=== PATIENT | female | born 1980 | race Caucasian/White ===

== ENCOUNTER 2016-07-16 09:22 | Emergency (ER) | payer SELFPAY ==
[2016-07-16] MEDS ORDERED: Morphine INJ* 4 MG/ML 1 ML CARPUJECT IM ONE (13:03)
[2016-07-16] MEDS ORDERED: Ondansetron INJ* 2 MG/ML VIAL IV ONE (13:03)
[2016-07-16] MEDS ORDERED: NS 0.9% 1000 ML* 1,000 ML IV ONE (13:03)
[2016-07-16 14:39] LABS: Urine Bacteria Absent (Absent); Urine Bilirubin Negative (Negative); Urine Glucose Negative (Negative); Urine Nitrite Negative (Negative)
[2016-07-16 14:52] LABS: Hematocrit 41 % (35-47); Hemoglobin 13.3 g/dl (12.0-16.0); Mean Corpuscular HGB Conc 33 g/dl (31-36); Mean Corpuscular Hemoglobin 27 pg (27-31); Mean Corpuscular Volume 82 fL (80-97); Mean Platelet Volume 9 um3 (7.4-10.4); Red Blood Count 4.94 10^6/ul (4.0-5.4); Red Cell Distribution Width 14 % (10.5-15); White Blood Count 11.9 10^3/ul (3.5-10.8)
--- NOTE | 2016-07-16 15:04 | RAD ---
HISTORY: Right pelvic pain COMPARISONS: October 14, 2015 TECHNIQUE: Multiple transverse and longitudinal ultrasound images were obtained of the pelvis using grayscale, color Doppler, and spectral Doppler imaging using the endovaginal transducer. FINDINGS: Evaluation of the right ovary somewhat technically limited. UTERUS: The uterus measures 7.9 x 4 x 4.8 cm. The uterus is normal in shape, size, contour, and echotexture. ENDOMETRIUM: The endometrial stripe is smooth. The endometrium measures 0.3 cm in thickness. CUL-DE-SAC: There is no free fluid within the cul-de-sac. RIGHT OVARY: The right ovary measures 3.8 x 2.3 x 2 cm. Normal arterial and venous waveforms are identifiable within the ovary on spectral Doppler imaging. LEFT OVARY: The left ovary measures 3.6 x 1.8 x 2.3 cm. Normal arterial and venous waveforms are identifiable within the ovary on spectral Doppler imaging. BLADDER: The bladder is not well visualized. IMPRESSION: NO ACUTE SONOGRAPHIC PATHOLOGY OF THE VISUALIZED PORTION OF THE PELVIS.
[2016-07-16 15:08] LABS: ALT 14 U/L (7-52); Albumin 4.1 g/dL (3.2-5.2); Alkaline Phosphatase 54 U/L (34-104); BUN/Creatinine Ratio 24.2 (8-20); Blood Urea Nitrogen 15 mg/dL (6-24); C Reactive Protein 11.78 mg/L (< 5.00); CO2 Carbon Dioxide 21 mmol/L (22-32); Calcium 8.9 mg/dL (8.6-10.3); Chloride 108 mmol/L (101-111); EGFR African American 141.7 (>60); EGFR Non-African American 110.2 (>60); Globulin 3.2 g/dL (2-4); Glucose 86 mg/dL (70-100); Lipase 22 U/L (11.0-82.0); Sodium 134 mmol/L (133-145); Total Protein 7.3 g/dL (6.4-8.9)
[2016-07-16 15:37] LABS: AST 13 U/L (13-39); Anion Gap 5 mmol/L (2-11); Potassium 4.2 mmol/L (3.5-5.0)
[2016-07-16] MEDS ORDERED: Iohexol 300* (CONTRAST) 10 ML SDV IV ONE (16:12)
[2016-07-16] MEDS ORDERED: Morphine INJ* 4 MG/ML 1 ML CARPUJECT IV ONE (17:43)
--- NOTE | 2016-07-16 18:50 | RAD ---
CLINICAL HISTORY: Abdominal pain, right lower quadrant pain COMPARISON: July 27, 2009 TECHNIQUE: Multiple contiguous axial CT scans were obtained of the abdomen and pelvis, without intravenous contrast enhancement. Coronal and sagittal multiplanar reformations are submitted for review. Oral contrast was administered. FINDINGS: The study is limited by the lack of intravenous contrast. This limits evaluation of the solid organs and vasculature. LUNG BASES: The lung bases are clear. LIVER: The liver is normal in shape, size, contour, and attenuation. BILE DUCTS: There is no intrahepatic or extrahepatic biliary dilatation. GALLBLADDER: The gallbladder is normal, without pericholecystic inflammatory change. PANCREAS: The pancreas is normal, without mass or ductal dilatation. SPLEEN: Normal in size and appearance. UPPER GI TRACT: Evaluation of the gastrointestinal tract is limited by incomplete gastric distention. The upper GI tract is unremarkable. SMALL BOWEL AND MESENTERY: The small bowel is normal in contour, course, and caliber. There is no obstruction or dilatation. COLON: There is a tubular, vermiform, hollow viscus that is blind ending, and originates from the cecum, consistent with a normal appendix. There is no periappendiceal inflammatory change. This is best seen on images 113 through 117 ADRENALS: Normal bilaterally. KIDNEYS: The kidneys are normal in shape, size, contour, and axis. There is no hydronephrosis or nephrolithiasis. BLADDER: The bladder is smooth in contour. PELVIC ORGANS: The uterus and adnexa are grossly normal for technique. AORTA: The aorta is normal. IVC: Unremarkable LYMPH NODES: There is no lymphadenopathy by size criteria. ABDOMINAL WALL: There is no evidence for abdominal wall hernia. BONES AND SOFT TISSUES: Unremarkable OTHER: None IMPRESSION: NO ACUTE CT PATHOLOGY OF THE VISUALIZED ABDOMEN OR PELVIS
--- NOTE | 2016-07-16 19:21 | ED ---
Fabrice Loza Anna, scribed for Chato Huston MD on 07/16/16 at 1302 . Abdominal Pain/Female - HPI Summary HPI Summary: Patient is a 35 y/o female coming to [facility] presenting with gradual onset of constant right pelvic pain that began yesterday. She describes the severity of the pain as 9/10. The pain radiates to her right lower abd, back, and bilateral legs. She has had bilateral thigh pain for 1.5 months. She had an ectopic last year and no longer has her right fallopian tube. LNMP now. - History of Current Complaint Chief Complaint: EDAbdPain Stated Complaint: RT SIDE PELVIC PAIN Time Seen by Provider: 07/16/16 12:53 Hx Obtained From: Patient Hx Last Menstrual Period: now Onset/Duration: Still Present Timing: Constant Severity Initially: Moderate Severity Currently: Moderate Pain Intensity: 9 Pain Scale Used: 0-10 Numeric Allergies/Adverse Reactions: Allergies Allergy/AdvReac Type Severity Reaction Status Date / Time Amoxicillin Allergy Severe turned Verified 07/16/16 09:51 blue and stopped breathing oranges Allergy Anaphylatic Uncoded 12/17/15 17:58 Shock PMH/Surg Hx/FS Hx/Imm Hx Neurological History: Reports: Hx Seizures - Surgical History Surgery Procedure, Year, and Place: hernia repair. tonsils and adenoids as a child. Ectopic 2016, removal of r fallopian tube Infectious Disease History: No Infectious Disease History: Denies: Hx Clostridium Difficile, Hx Hepatitis, Hx Human Immunodeficiency Virus (HIV), Hx of Known/Suspected MRSA, Hx Shingles, Hx Tuberculosis, Hx Known/ Suspected VRE, Hx Known/Suspected VRSA, History Other Infectious Disease, Traveled Outside the [place] in Last 30 Days - Family History Known Family History: Positive: Other - Hx Ovarian, cervical, uterine CA Negative: Cardiac Disease, Diabetes - Social History Occupation: Employed Full-time Lives: With Family Alcohol Use: None Hx Substance Use: No Substance Use Type: Reports: None Hx Tobacco Use: No Smoking Status (MU): Former Smoker Review of Systems Positive: Abdominal Pain Positive: Myalgia - R pelvis and bilateral legs All Other Systems Reviewed And Are Negative: Yes Physical Exam - Summary Physical Exam Summary: VITAL SIGNS: Reviewed. GENERAL: Patient is an overweihgt female who is lying comfortable in the stretcher. Patient is not in any acute respiratory distress. HEAD AND FACE: Normocephalic and atraumatic. EYES: PERRLA, EOMI x 2, No injected conjunctiva. EARS: Hearing grossly intact. Ear canals and tympanic membranes are WNL. MOUTH: Oropharynx within normal limits. NECK: Supple, trachea is midline, no adenopathy, no JVD. CHEST: Symmetric, no tenderness at palpation LUNGS: Clear to auscultation bilaterally. No wheezing or crackles. CVS: RRR,, S1 and S2 present, no murmurs or gallops appreciated. ABDOMEN: Soft, positive RLQ and right pelvic tenderness. No signs of distention. Positive bowel sounds. No rebound no guarding, and no masses palpated. No abdominal bruit or pulsations. No signs of inguinal hernia. EXTREMITIES: FROM in all major joints, no edema, no cyanosis or clubbing. NEURO: Alert and oriented x 3. No acute neurological deficits. Speech is normal. SKIN: Dry and warm Back: There is no ecchymosis, no deformity, positive paraspinal muscle tenderness in the lumbar spine. No vertebral tenderness. No saddle anesthesia. Refuses rectal exam. Straight test is negative. Triage Information Reviewed: Yes Vital Signs On Initial Exam: Initial Vitals Temp Pulse Resp BP Pulse Ox 98.7 F 71 18 154/97 100 07/16/16 09:47 07/16/16 09:47 07/16/16 09:47 07/16/16 09:47 07/16/16 09:47 Vital Signs Reviewed: Yes Diagnostics - Vital Signs Vital Signs Temp Pulse Resp BP Pulse Ox 07/16/16 11:15 98.2 F 71 16 139/94 99 07/16/16 11:05 98.2 F 71 16 139/94 99 07/16/16 09:47 98.7 F 71 18 154/97 100 - Laboratory Result Diagrams: 07/16/16 14:40 07/16/16 14:40 Lab Statement: Any lab studies that have been ordered have been reviewed, and results considered in the medical decision making process. - CT CT abd/pel CT Interpretation: No Acute Changes CT Interpretation Completed By: Radiologist - IMPRESSION: NO ACUTE CT PATHOLOGY OF THE VISUALIZED ABDOMEN OR PELVIS - Ultrasound No standard instances Ultrasound Interpretation: No Acute Changes Ultrasound Interpretation Completed By: Radiologist - TRANSVAGINAL US IMPRESSION : NO ACUTE SONOGRAPHIC PATHOLOGY OF THE VISUALIZED PORTION OF THE PELVIS. Re-Evaluation - Re-Evaluation First Eval Re-Evaluation Time: 15:53 Change: Unchanged Comment: The patient reports that she is still in pain. She agrees to a CT given that the US was negative. Second Eval Re-Evaluation Time: 19:07 Change: Improved Comment: Pt feels improved following morphine. Discussed CT results and plan of care with patient. Agrees with plan of care. Abdominal Pain Fem Course/Dx - Course Course Of Treatment: Patient is a 35 y/o female coming to [facility] presenting with gradual onset of constant right pelvic pain that began yesterday. She describes the severity of the pain as 9/10. The pain radiates to her right lower abd, back , and bilateral legs. She has had bilateral thigh pain for 1.5 months. She had an ectopic last year and no longer has her right fallopian tube. LNMP today. Blood work wnl except for increased WBCs 11.9. Urine is contaminated. Transvaginal U/S: No acute sonographic pathology of the visualized portion of the pelvis. Abdominal and pelvic CT impression: No acute pathology of the albumin and pelvis. I offered the patient a pelvic exam and she declined since she has no vaginal discharge or bleeding. In the ED course she was given IV fluids and she was given Morphine for the pain. After the Morphine she reports she is feeling better. Pain is only 2/10. Patient my be comming from her back since now she reports that fro the last couple days she has been having back pain. I discussed all the findings and test results with the patient. Patient was instructed to return to the emergency room immediately if any of the symptoms return or worsens. They were explained the possibility of an early abdominal pathology which was not detected at this time despite the physical exam and testing. They understand and agree. Abdominal exam before discharge: Soft, NT. No signs of distention. BS present. No rebound no guarding, and no masses palpated. Patient is alert and oriented and hemodynamically stable. Patient is to follow up with primary care physician in the next 2 to 3 days. Patient agree and understands. - Diagnoses Differential Diagnosis: Positive: Appendicitis, Diverticulitis, Ectopic , Ovarian Cyst, Renal Colic - Inguinal Hernia Provider Diagnoses: Abdominal pain, Back pain Discharge - Discharge Plan Condition: Stable Disposition: HOME Prescriptions: HYDROcodone/ACETAMIN 5-325 MG* [[place] 5-325 TAB*] 1 tab PO Q6H PRN #10 tab MDD Max 4 tabs / day PRN Reason: Pain Methocarbamol TAB* [Robaxin TAB*] 500 mg PO TID #9 tab Naproxen TAB* [Naprosyn TAB*] 500 mg PO Q8H PRN #20 tab PRN Reason: Pain Patient Education Materials: Hydrocodone/Acetaminophen (By mouth), Naproxen ( By mouth), Methocarbamol (By mouth), Abdominal Pain (ED) Referrals: [facility] [place] [facility]IAN REFERRAL [Outside] Additional Instructions: Follow up with primary care physician within 48 hours. Return to the emergency department for changing or worsening symptoms. The documentation as recorded by the Fabrice ervin Anna accurately reflects the service I personally performed and the decisions made by Robel kahn Walter, MD.
[2016-07-16 20:24] VITALS: BP 128/88
== END 2016-07-16 21:21 | disposition home or self-care (01) ==
LOC: ED 09:22
DX: R10.9 Unspecified abdominal pain (principal); M54.9 Dorsalgia, unspecified; Z87.891 Personal history of nicotine dependence; Z88.0 Allergy status to penicillin
CPT/HCPCS: 36415; 74176; 76830; 80053; 81003; 81015; 83690; 84702; 85025; 86140; 96360; 96372; 96374; 96375; 99283; J2270; J2405

== ENCOUNTER 2016-08-29 00:43 | Emergency (ER) | payer SELFPAY ==
[2016-08-29 01:06] VITALS: BP 156/128
--- NOTE | 2016-08-29 01:47 | ED ---
Jenni Loza Michael, scribed for Chevy Pratt MD on 08/29/16 at 0142 . Lower Extremity - HPI Summary HPI Summary: 35 y/o female comes to the ED presenting with constant LLE pain that started suddenly after a 200 lb box fell on her LLE at work today at 0000. The pt reports that the pain ranges from her left patellar to the left calf. The pt describes the LLE pain as a 10 out of 10 on a pain assessment scale. She denies all other symptoms. The PMHx is significant for sz. - History of Current Complaint Chief Complaint: EDExtremityLower Stated Complaint: LEFT LEG PAIN AND SWELLING Time Seen by Provider: 08/29/16 01:25 Hx Obtained From: Patient, Medical Records Hx Last Menstrual Period: now Mechanism Of Injury: Direct Blow Onset of Pain: Immediate Onset/Duration: Hours Severity Initially: Moderate Severity Currently: Moderate Pain Intensity: 10 Pain Scale Used: 0-10 Numeric Timing: Constant Location: Is Discrete @ - LLE Associated Signs And Symptoms: Positive: Other - LLE Pain Aggravating Factor(s): Nothing Alleviating Factor(s): Nothing - Allergies/Home Medications Allergies/Adverse Reactions: Allergies Allergy/AdvReac Type Severity Reaction Status Date / Time Amoxicillin Allergy Severe turned Verified 07/16/16 09:51 blue and stopped breathing oranges Allergy Anaphylatic Uncoded 12/17/15 17:58 Shock PMH/Surg Hx/FS Hx/Imm Hx Endocrine/Hematology History: Denies: Hx Diabetes History: Denies: Hx Renal Disease Neurological History: Reports: Hx Seizures - Surgical History Surgery Procedure, Year, and Place: hernia repair. tonsils and adenoids as a child. Ectopic 2016, removal of r fallopian tube Infectious Disease History: No Infectious Disease History: Denies: Hx Clostridium Difficile, Hx Hepatitis, Hx Human Immunodeficiency Virus (HIV), Hx of Known/Suspected MRSA, Hx Shingles, Hx Tuberculosis, Hx Known/ Suspected VRE, Hx Known/Suspected VRSA, History Other Infectious Disease, Traveled Outside the [place] in Last 30 Days - Family History Known Family History: Positive: Other - Hx Ovarian, cervical, uterine CA Negative: Cardiac Disease, Diabetes - Social History Occupation: Employed Full-time Lives: Alone Alcohol Use: Occasionally Hx Substance Use: No Substance Use Type: Reports: None Hx Tobacco Use: No Smoking Status (MU): Former Smoker Review of Systems Negative: Fever Positive: Other - LLE pain All Other Systems Reviewed And Are Negative: Yes Physical Exam Triage Information Reviewed: Yes Vital Signs On Initial Exam: Initial Vitals Temp Pulse Resp BP Pulse Ox 98 F 84 16 156/128 97 08/29/16 01:02 08/29/16 01:02 08/29/16 01:02 08/29/16 01:02 08/29/16 01:02 Vital Signs Reviewed: Yes Appearance: Positive: No Pain Distress, Obese Skin: Positive: Warm Head/Face: Positive: Normal Head/Face Inspection Eyes: Positive: NIRMAL ENT: Positive: Hearing grossly normal Respiratory/Lung Sounds: Positive: Breath Sounds Present Musculoskeletal: Positive: Other - mild tenderness mid lle, no deformity, from Neurological: Positive: NV Bundle Intact Distally, Normal Gait Psychiatric: Positive: Affect/Mood Appropriate - [place] Coma Scale Coma Scale Total: 15 Diagnostics - Vital Signs Vital Signs Temp Pulse Resp BP Pulse Ox 08/29/16 01:02 98 F 84 16 156/128 97 - Laboratory Lab Statement: Any lab studies that have been ordered have been reviewed, and results considered in the medical decision making process. - Radiology LLE XR Xray Interpretation: No Acute Changes Radiology Interpretation Completed By: ED Physician Lower Extremity Course/Dx - Diagnoses Provider Diagnoses: Contusion of left lower limb Discharge - Discharge Plan Condition: Stable Disposition: HOME Patient Education Materials: Knee Pain (ED) Referrals: [facility] [place] [facility] [Outside] Additional Instructions: Please follow up with the [facility] [place] Physician Referral within the next 2-4 days. The documentation as recorded by the Jenni ervin Michael accurately reflects the service I personally performed and the decisions made by , Chevy Pratt MD.
--- NOTE | 2016-08-29 07:51 | RAD ---
HISTORY: Trauma, left leg injury and pain COMPARISONS: None VIEWS: 4, Frontal and lateral views of the left foreleg FINDINGS: BONE DENSITY: Normal. BONES: There is no displaced fracture. JOINTS: There is no arthropathy. ALIGNMENT: There is no dislocation. SOFT TISSUES: Unremarkable. OTHER FINDINGS: None. IMPRESSION: NO ACUTE OSSEOUS INJURY. IF SYMPTOMS PERSIST, RECOMMEND REPEAT IMAGING.
== END 2016-08-29 01:58 | disposition home or self-care (01) ==
LOC: ED 00:43
DX: S80.12XA Contusion of left lower leg, initial encounter (principal); M79.605 Pain in left leg; Z87.891 Personal history of nicotine dependence; W22.8XXA Striking against or struck by other objects, initial encounter; Y93.9 Activity, unspecified; Y92.9 Unspecified place or not applicable
CPT/HCPCS: 99282

== ENCOUNTER 2016-09-24 07:28 | Emergency (ER) | payer SELFPAY ==
[2016-09-24 07:43] VITALS: BP 139/92
--- NOTE | 2016-09-24 08:18 | UC ---
Throat Pain/Nasal Job HPI - HPI Summary HPI Summary: [address], NASAL CONGESTION, RHINITIS AND MILD COUGH. NO FEVER, N/V/D. ALSO HAS HAD LEFT EAR LOBE SWELLING AND DRAINAGE FROM A PIERCING SHE HAD DONE MARCH 2016. SHE REPORTS IT HAS BEEN RED, SWOLLEN, TENDER AND DRAINING INTERMITTENTLY EVERY MONTH OR SO SINCE SHE HAD IT DONE. - History of Current Complaint Chief Complaint: UCRespiratory Stated Complaint: THROAT PAIN Time Seen by Provider: 09/24/16 07:43 Hx Obtained From: Patient Hx Last Menstrual Period: 08/29/16 Onset/Duration: Gradual Onset, Lasting Days, Still Present Severity: Moderate Pain Intensity: 9 - PT IN NO DISTRESS Pain Scale Used: 0-10 Numeric Cough: Nonproductive Associated Signs & Symptoms: Positive: Nasal Discharge. Negative: Wheezing, Hoarseness, Sinus Discomfort, Fever, Vomiting, Rash - Allergies/Home Medications Allergies/Adverse Reactions: Allergies Allergy/AdvReac Type Severity Reaction Status Date / Time Amoxicillin Allergy Severe turned Verified 07/16/16 09:51 blue and stopped breathing oranges Allergy Anaphylatic Uncoded 12/17/15 17:58 Shock PMH/Surg Hx/FS Hx/Imm Hx Endocrine History Of: Denies: Diabetes, Thyroid Disease Cardiovascular History Of: Denies: Cardiac Disorders, Hypertension Respiratory History Of: Denies: COPD, Asthma GI/ History Of: Denies: Ulcer, Renal Disease Neurological History Of: Reports: Seizures - Surgical History Surgical History: Yes Surgery Procedure, Year, and Place: hernia repair. tonsils and adenoids as a child. Ectopic 2016, removal of r fallopian tube - Family History Known Family History: Positive: Hypertension, Other - Hx Ovarian, cervical, uterine CA Negative: Cardiac Disease, Diabetes - Social History Alcohol Use: None Substance Use Type: None Smoking Status (MU): Former Smoker - Immunization History Most Recent Influenza Vaccination: no Review of Systems Constitutional: Negative ENT: Sore Throat, Nasal Discharge Respiratory: Cough Cardiovascular: Negative Gastrointestinal: Negative All Other Systems Reviewed And Are Negative: Yes Physical Exam Triage Information Reviewed: Yes Appearance: Well-Appearing, No Pain Distress, Well-Nourished Vital Signs: Initial Vital Signs Temp 98.8 F 09/24/16 07:31 Pulse 84 09/24/16 07:31 Resp 16 09/24/16 07:31 BP 139/92 09/24/16 07:31 Pulse Ox 98 09/24/16 07:31 Vital Signs Reviewed: Yes Eyes: Positive: Conjunctiva Clear ENT: Positive: Hearing grossly normal, Pharyngeal erythema, TMs normal Neck: Positive: Supple, Nontender, No Lymphadenopathy Respiratory Exam: Normal Cardiovascular Exam: Normal Abdomen Description: Positive: Soft Musculoskeletal: Positive: No Edema Neurological: Positive: Alert Psychological: Positive: Age Appropriate Behavior Skin: Negative: rashes Throat Pain/Nasal Course/Dx - Course Course Of Treatment: BP SLIGHTLY ELEVATED LIKELY DUE TO ACUTE CONDITION. 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 - Differential Dx/Diagnosis Provider Diagnoses: 1. ACUTE PHARYNGITIS. 2. ABSCESS LEFT EAR PINNA Discharge - Discharge Plan Condition: Stable Disposition: HOME Prescriptions: Sulfamethox/Trimethoprim DS* [Bactrim DS 800/160 TAB*] 1 tab PO BID #14 tab Patient Education Materials: Pharyngitis (ED), Abscess (ED) Referrals: No Primary Care Phys,NOPCP [Primary Care Provider] - Additional Instructions: YOUR SORE THROAT AND CONGESTION ARE LIKELY VIRALLY MEDIATED AND DO NOT NEED ANTIBIOTICS HOWEVER GIVEN YOUR LEFT EAR LOBE IS INFECTED FROM YOUR PIERCING WE WILL COVER YOU WITH ANTIBIOTICS FOR THAT. CONTINUE TO KEEP CLEAN AND COVER WITH ANTIBIOTIC OINTMENT. THE PIERCING MAY NEED TO BE REMOVED IF YOU CONTINUE TO DEVELOP RECURRENT INFECTIONS. CALL THE NUMBER BELOW FOR ASSISTANCE IN ESTABLISHING WITH A PCP An additional resource available to assist in finding the appropriate physician for your health care needs is the [facility] ([facility]). You may contact them by calling [phone].
== END 2016-09-24 08:07 | disposition home or self-care (01) ==
LOC: UCEAST 07:28
DX: J02.9 Acute pharyngitis, unspecified (principal); H60.02 Abscess of left external ear; Z88.1 Allergy status to other antibiotic agents; Z87.891 Personal history of nicotine dependence
CPT/HCPCS: 99211; G0463

== ENCOUNTER 2017-03-14 13:42 | Emergency (ER) | payer SELFPAY ==
[2017-03-14 15:56] LABS: Hematocrit 40 % (35-47); Hemoglobin 13.5 g/dl (12.0-16.0); Mean Corpuscular HGB Conc 34 g/dl (31-36); Mean Corpuscular Hemoglobin 28 pg (27-31); Mean Corpuscular Volume 81 fL (80-97); Mean Platelet Volume 9 um3 (7.4-10.4); Red Blood Count 4.92 10^6/ul (4.0-5.4); Red Cell Distribution Width 14 % (10.5-15); White Blood Count 10.3 10^3/ul (3.5-10.8)
[2017-03-14 16:08] LABS: Urine Bacteria 1+ (Absent); Urine Bilirubin Negative (Negative); Urine Glucose Negative (Negative); Urine Nitrite Negative (Negative)
[2017-03-14 16:33] LABS: Albumin 4.3 g/dL (3.2-5.2); BUN/Creatinine Ratio 18.9 (8-20); Calcium 9.4 mg/dL (8.6-10.3); EGFR African American 114.9 (>60); EGFR Non-African American 89.3 (>60); Globulin 2.9 g/dL (2-4); Potassium 3.6 mmol/L (3.5-5.0); Total Bilirubin 0.8 mg/dL (0.2-1.0); Total Protein 7.2 g/dL (6.4-8.9)
--- NOTE | 2017-03-14 16:44 | ED ---
Abdominal Pain/Female - HPI Summary HPI Summary: 36F presents with abdominal pain for 2 weeks. She states pain is diffusely located. it is intermittent and worst with food. she denies any dysuria, hematuria, flank pain, urgency, or frequency. no n/v/d/c. Denies any change in appetite. had fallopian tube removal due to miscarriage last year. pain is in RUQ, LUQ, and LLQ. pain changes in intensity throughout day. no blood in stool. has family history of gastritis. - History of Current Complaint Chief Complaint: EDAbdPain Stated Complaint: ABD PAIN Time Seen by Provider: 03/14/17 15:07 Hx Last Menstrual Period: now Pain Intensity: 9 Allergies/Adverse Reactions: Allergies Allergy/AdvReac Type Severity Reaction Status Date / Time Amoxicillin Allergy Severe turned Verified 03/14/17 13:48 blue and stopped breathing oranges Allergy Anaphylatic Uncoded 03/14/17 13:48 Shock PMH/Surg Hx/FS Hx/Imm Hx Endocrine/Hematology History: Denies: Hx Diabetes, Hx Thyroid Disease Cardiovascular History: Denies: Hx Hypertension Respiratory History: Denies: Hx Asthma, Hx Chronic Obstructive Pulmonary Disease (COPD) GI History: Denies: Hx Ulcer History: Denies: Hx Renal Disease Neurological History: Reports: Hx Seizures - Surgical History Surgery Procedure, Year, and Place: hernia repair. tonsils and adenoids as a child. Ectopic 2016, removal of r fallopian tube Infectious Disease History: No Infectious Disease History: Denies: Hx Clostridium Difficile, Hx Hepatitis, Hx Human Immunodeficiency Virus (HIV), Hx of Known/Suspected MRSA, Hx Shingles, Hx Tuberculosis, Hx Known/ Suspected VRE, Hx Known/Suspected VRSA, History Other Infectious Disease, Traveled Outside the [place] in Last 30 Days - Family History Known Family History: Positive: None - REVIEWED & NONCONTRIBUTORY, Hypertension , Other - Hx Ovarian, cervical, uterine CA Negative: Cardiac Disease, Diabetes - Social History Alcohol Use: None Hx Substance Use: No Substance Use Type: Reports: None Hx Tobacco Use: No Smoking Status (MU): Former Smoker Review of Systems Negative: Fever Negative: Chest Pain Negative: Shortness Of Breath Positive: Abdominal Pain. Negative: Vomiting, Diarrhea, Nausea All Other Systems Reviewed And Are Negative: Yes Physical Exam Triage Information Reviewed: Yes Vital Signs On Initial Exam: Initial Vitals Temp Pulse Resp BP Pulse Ox 97.5 F 71 16 146/91 99 03/14/17 13:44 03/14/17 13:44 03/14/17 13:44 03/14/17 13:44 03/14/17 13:44 Vital Signs Reviewed: Yes Appearance: Positive: Well-Appearing Skin: Positive: Warm, Dry Head/Face: Positive: Normal Head/Face Inspection Eyes: Positive: Normal, EOMI, NIRMAL, Conjunctiva Clear ENT: Positive: Normal ENT inspection, Pharynx normal, TMs normal Respiratory/Lung Sounds: Positive: Clear to Auscultation, Breath Sounds Present Cardiovascular: Positive: Normal, RRR Abdomen Description: Positive: Soft, Other: - tenderness in RUQ, LUQ, and LLQ. nontender RLQ. neg johns Bowel Sounds: Positive: Present - [place] Coma Scale Coma Scale Total: 15 Diagnostics - Vital Signs Vital Signs Temp Pulse Resp BP Pulse Ox 03/14/17 15:48 97.2 F 62 17 121/73 100 03/14/17 13:44 97.5 F 71 16 146/91 99 - Laboratory Lab Results: Lab Results 03/14/17 03/14/17 03/14/17 Range/Units 15:36 15:41 15:41 WBC 10.3 (3.5-10.8) 10^3/ul RBC 4.92 (4.0-5.4) 10^6/ul Hgb 13.5 (12.0-16.0) g/dl Hct 40 (35-47) % MCV 81 (80-97) fL MCH 28 (27-31) pg MCHC 34 (31-36) g/dl RDW 14 (10.5-15) % Plt Count 237 (150-450) 10^3/ul MPV 9 (7.4-10.4) um3 Neut % (Auto) 64.2 (38-83) % Lymph % (Auto) 27.8 (25-47) % [place] % (Auto) 5.8 (1-9) % Eos % (Auto) 1.4 (0-6) % Baso % (Auto) 0.8 (0-2) % Absolute Neuts (auto) 6.6 (1.5-7.7) 10^3/ul Absolute Lymphs (auto) 2.9 (1.0-4.8) 10^3/ul Absolute Monos (auto) 0.6 (0-0.8) 10^3/ul Absolute Eos (auto) 0.1 (0-0.6) 10^3/ul Absolute Basos (auto) 0.1 (0-0.2) 10^3/ul Absolute Nucleated RBC 0.01 10^3/ul Nucleated RBC % 0.1 Sodium 136 (133-145) mmol/L Potassium 3.6 (3.5-5.0) mmol/L Chloride 103 (101-111) mmol/L Carbon Dioxide 26 (22-32) mmol/L Anion Gap 7 (2-11) mmol/L BUN 14 (6-24) mg/dL Creatinine 0.74 (0.51-0.95) mg/dL Est GFR ( Amer) 114.9 (>60) Est GFR (Non-Af Amer) 89.3 (>60) BUN/Creatinine Ratio 18.9 (8-20) Glucose 80 (70-100) mg/dL Calcium 9.4 (8.6-10.3) mg/dL Total Bilirubin 0.80 (0.2-1.0) mg/dL AST 14 (13-39) U/L ALT 13 (7-52) U/L Alkaline Phosphatase 53 (34-104) U/L C-React Prot High Sens 4.47 mg/L Total Protein 7.2 (6.4-8.9) g/dL Albumin 4.3 (3.2-5.2) g/dL Globulin 2.9 (2-4) g/dL Albumin/Globulin Ratio 1.5 (1-3) Lipase Pending Beta HCG, Quant 0.67 mIU/mL Urine Color Yellow Urine Appearance Cloudy Urine pH 6.0 (5-9) Ur Specific [place] 1.024 (1.010-1.030) Urine Protein Negative (Negative) Urine Ketones 1+ H (Negative) Urine Blood Negative (Negative) Urine Nitrate Negative (Negative) Urine Bilirubin Negative (Negative) Urine Urobilinogen Negative (Negative) Ur Leukocyte Esterase Trace H (Negative) Urine WBC (Auto) Trace(0-5/hpf) (Absent) Urine RBC (Auto) Absent (Absent) Ur Squamous Epith Cells Present H (Absent) Urine Bacteria 1+ H (Absent) Urine Glucose Negative (Negative) Result Diagrams: 03/14/17 15:41 03/14/17 15:41 Lab Statement: Any lab studies that have been ordered have been reviewed, and results considered in the medical decision making process. - Ultrasound No standard instances Ultrasound Interpretation: No Acute Changes Ultrasound Interpretation Completed By: Radiologist Abdominal Pain Fem Course/Dx - Course Course Of Treatment: 36F presents with abdominal pain for 2 weeks. She states pain is diffusely located. it is intermittent and worst with food. she denies any dysuria, hematuria, flank pain, urgency, or frequency. no n/v/d/c. Denies any change in appetite. had fallopian tube removal due to miscarriage last year. pain is in RUQ, LUQ, and LLQ. pain changes in intensity throughout day. no blood in stool. has family history of gastritis. on exam tender in RUQ, LUQ, LLQ. neg johns. has strong family history of ovarian cancer so get u/s normal and got u/s gallbladder which was normal. explained likely GERD causing symptoms so will treat with ompreazole. patient understands and agrees with plan. - Diagnoses Differential Diagnosis: Positive: Gall Bladder Disease, Ovarian Cyst, Other - gastritis, gerd Provider Diagnoses: Abdominal pain Discharge - Discharge Plan Condition: Good Disposition: HOME Prescriptions: Omeprazole CAP* [Prilosec CAP* 20 MG] 20 mg PO DAILY #20 cap.dr Forms: *Work Release Referrals: [facility] [place] PHYSICIAN REFERRAL [Outside] Additional Instructions: Pain is likely due to acid reflux Take tums as needed for break through symptoms Take omeprazole once a 30 mins before food Follow up with primary Return to ED if develop any new or worsening symptoms
--- NOTE | 2017-03-14 16:46 | RAD ---
HISTORY: Abdominal pain COMPARISONS: None TECHNIQUE: Multiple transverse and longitudinal ultrasound images were obtained of the right upper quadrant. FINDINGS: LIVER: The liver is normal in dimensions and echogenicity. Normal hepatic and portal venous blood flow is duplicated with color flow imaging. There is no gross intrahepatic biliary duct dilatation. GALLBLADDER AND EXTRAHEPATIC BILIARY DUCT: The gallbladder is normal in appearance without intraluminal stones or other soft tissue masses. There is no pericholecystic fluid or gallbladder wall thickening. The common bile duct measures a maximum diameter of 3 mm. PANCREAS: The portions of the pancreas not obscured by bowel gas are normal in appearance. RIGHT KIDNEY: The right kidney is normal in size, morphology and echogenicity. AORTA AND IVC: The visualized portions are normal in appearance and not pathologically dilated. IMPRESSION: Normal ultrasound of the right upper quadrant.
--- NOTE | 2017-03-14 16:53 | RAD ---
INDICATION: 2 weeks of left lower quadrant pain COMPARISON: Similar examination July 16, 2016 TECHNIQUE: Real-time transabdominal and transvaginal ultrasound examination of the female pelvis including grayscale and Doppler color flow imaging. FINDINGS: Uterus: The uterus is normal in size and echogenicity measuring 7.6 x 3.8 x 6.0 cm. The endometrial stripe is smooth and uniform measuring 7 Marti in thickness. Ovaries: The right and left ovary measure 3.8 x 2.1 x 2.3 cm and 5.1 x 2.5 x 2.5 cm, respectively. Normal arterial and venous waveforms are identified. Appearance is within normal limits for the patient's age. There is no free fluid in the cul-de-sac. IMPRESSION: Normal and age-appropriate pelvic ultrasound.
[2017-03-14 18:06] VITALS: BP 141/89
== END 2017-03-14 18:09 | disposition home or self-care (01) ==
LOC: ED 13:42
DX: R10.9 Unspecified abdominal pain (principal)
CPT/HCPCS: 36415; 76705; 76830; 80053; 81003; 81015; 83690; 84702; 85025; 86141; 87086; 99282

== ENCOUNTER 2017-03-17 12:34 | Emergency (ER) | payer SELFPAY ==
[2017-03-17] MEDS ORDERED: Al Hydrox/Mg Hydrox/Simet LIQ* 30 ML UDC PO ONE (16:21)
[2017-03-17] MEDS ORDERED: Lidocaine 2% VISCOUS* 15 ML UDC PO ONE (16:21)
[2017-03-17 16:43] LABS: Hematocrit 41 % (35-47); Hemoglobin 13.7 g/dl (12.0-16.0); Mean Corpuscular HGB Conc 34 g/dl (31-36); Mean Corpuscular Hemoglobin 27 pg (27-31); Mean Corpuscular Volume 82 fL (80-97); Mean Platelet Volume 9 um3 (7.4-10.4); Red Cell Distribution Width 14 % (10.5-15); White Blood Count 12.4 10^3/ul (3.5-10.8)
[2017-03-17 16:58] LABS: BUN/Creatinine Ratio 11.3 (8-20); C Reactive Protein 2.51 mg/L (< 5.00); Calcium 9.1 mg/dL (8.6-10.3); EGFR African American 120.5 (>60); EGFR Non-African American 93.7 (>60); Globulin 2.8 g/dL (2-4); Potassium 3.7 mmol/L (3.5-5.0); Total Bilirubin 0.6 mg/dL (0.2-1.0); Total Protein 6.8 g/dL (6.4-8.9)
[2017-03-17] MEDS ORDERED: Iohexol 300* (CONTRAST) 10 ML SDV IV ONE (17:35)
--- NOTE | 2017-03-17 18:56 | RAD ---
INDICATION: LEFT lower quadrant pain worse with eating. COMPARISON: March 14, 2017 pelvic ultrasound. July 16, 2016 CT. TECHNIQUE: Multidetector CT images were obtained from the lung bases to the ischial tuberosities with 109 mL Omnipaque 300 IV and oral contrast. Multiplanar reformation. REPORT: Unremarkable visualized inferior thorax. Decreased density of the liver consistent with fatty infiltration. 0.6 cm subcapsular or pericapsular fat density lesion at the RIGHT posterior hepatic segment is unchanged compared with a CT from July 27, 2009 without concern. Negative for biliary dilatation. No CT abnormality of the gallbladder. Unremarkable pancreas. Unchanged low suspicion 3 mm hypodensity at the spleen likely a cyst or hemangioma. Small splenule caudal to the dominant spleen. Negative for CT abnormality of the upper GI, small bowel, appendix visualized medial to the cecum, or colon. Negative for free pelvic fluid, free air, hernias. Normal adrenal glands. Symmetric nephrograms and pyelograms. Negative for hydronephrosis. No suspicious focal renal lesions. Unremarkable ureters and incompletely distended urinary bladder. Variant arterial morphology uterus. Unremarkable adnexal regions. Negative for lymphadenopathy. Normal diameter abdominal aorta and iliac arteries. Physiologic distention of the IVC. Negative for suspicious osseous lesions. IMPRESSION: 1. No acute abdominal pelvic pathologic process evident. 2. Normal appendix documented. 3. Fatty infiltration of the liver.
[2017-03-17] MEDS ORDERED: Omeprazole CAP* 20 MG PO ONE (19:15)
--- NOTE | 2017-03-17 19:17 | ED ---
Abdominal Pain/Female - HPI Summary HPI Summary: Pt here w/ abdominal pain - started as diffuse abdominal pain and was seen Friday for this - dx'd w/ GERD and rx'd omeprazole but never received this as she can't afford it. Does admit to taking NSAID's for tendonitis issues. Denies - History of Current Complaint Chief Complaint: EDAbdPain Stated Complaint: STOMACH PAIN/UNABLE TO EAT/ DRINK Time Seen by Provider: 03/17/17 15:59 Hx Last Menstrual Period: now Pain Intensity: 10 Allergies/Adverse Reactions: Allergies Allergy/AdvReac Type Severity Reaction Status Date / Time Amoxicillin Allergy Severe turned Verified 03/14/17 13:48 blue and stopped breathing oranges Allergy Anaphylatic Uncoded 03/14/17 13:48 Shock PMH/Surg Hx/FS Hx/Imm Hx Endocrine/Hematology History: Denies: Hx Diabetes, Hx Thyroid Disease Cardiovascular History: Denies: Hx Hypertension Respiratory History: Denies: Hx Asthma, Hx Chronic Obstructive Pulmonary Disease (COPD) GI History: Denies: Hx Ulcer History: Denies: Hx Renal Disease Neurological History: Reports: Hx Seizures - Surgical History Surgery Procedure, Year, and Place: hernia repair. tonsils and adenoids as a child. Ectopic 2016, removal of r fallopian tube Infectious Disease History: No Infectious Disease History: Denies: Hx Clostridium Difficile, Hx Hepatitis, Hx Human Immunodeficiency Virus (HIV), Hx of Known/Suspected MRSA, Hx Shingles, Hx Tuberculosis, Hx Known/ Suspected VRE, Hx Known/Suspected VRSA, History Other Infectious Disease, Traveled Outside the [place] in Last 30 Days - Family History Known Family History: Positive: None - REVIEWED & NONCONTRIBUTORY, Hypertension , Other - Hx Ovarian, cervical, uterine CA Negative: Cardiac Disease, Diabetes - Social History Alcohol Use: None Hx Substance Use: No Substance Use Type: Reports: None Hx Tobacco Use: No Smoking Status (MU): Former Smoker Physical Exam Vital Signs On Initial Exam: Initial Vitals Temp Pulse Resp BP Pulse Ox 98.0 F 78 18 132/93 99 03/17/17 12:35 03/17/17 12:35 03/17/17 12:35 03/17/17 12:35 03/17/17 12:35 - [place] Coma Scale Coma Scale Total: 15 Diagnostics - Vital Signs Vital Signs Temp Pulse Resp BP Pulse Ox 03/17/17 12:35 98.0 F 78 18 132/93 99 - Laboratory Lab Results: Lab Results 03/17/17 03/17/17 03/17/17 Range/Units 16:36 16:36 16:36 WBC 12.4 H (3.5-10.8) 10^3/ul RBC 5.00 (4.0-5.4) 10^6/ul Hgb 13.7 (12.0-16.0) g/dl Hct 41 (35-47) % MCV 82 (80-97) fL MCH 27 (27-31) pg MCHC 34 (31-36) g/dl RDW 14 (10.5-15) % Plt Count 230 (150-450) 10^3/ul MPV 9 (7.4-10.4) um3 Neut % (Auto) 66.3 (38-83) % Lymph % (Auto) 25.5 (25-47) % [place] % (Auto) 5.9 (1-9) % Eos % (Auto) 1.6 (0-6) % Baso % (Auto) 0.7 (0-2) % Absolute Neuts (auto) 8.2 H (1.5-7.7) 10^3/ul Absolute Lymphs (auto) 3.1 (1.0-4.8) 10^3/ul Absolute Monos (auto) 0.7 (0-0.8) 10^3/ul Absolute Eos (auto) 0.2 (0-0.6) 10^3/ul Absolute Basos (auto) 0.1 (0-0.2) 10^3/ul Absolute Nucleated RBC 0.01 10^3/ul Nucleated RBC % 0.1 Sodium 137 (133-145) mmol/L Potassium 3.7 (3.5-5.0) mmol/L Chloride 107 (101-111) mmol/L Carbon Dioxide 24 (22-32) mmol/L Anion Gap 6 (2-11) mmol/L BUN 8 (6-24) mg/dL Creatinine 0.71 (0.51-0.95) mg/dL Est GFR ( Amer) 120.5 (>60) Est GFR (Non-Af Amer) 93.7 (>60) BUN/Creatinine Ratio 11.3 (8-20) Glucose 83 (70-100) mg/dL Lactic Acid 0.7 (0.5-2.0) mmol/L Calcium 9.1 (8.6-10.3) mg/dL Total Bilirubin 0.60 (0.2-1.0) mg/dL AST 11 L (13-39) U/L ALT 11 (7-52) U/L Alkaline Phosphatase 50 (34-104) U/L C-Reactive Protein 2.51 (< 5.00) mg/L Total Protein 6.8 (6.4-8.9) g/dL Albumin 4.0 (3.2-5.2) g/dL Globulin 2.8 (2-4) g/dL Albumin/Globulin Ratio 1.4 (1-3) Lipase 13 (11.0-82.0) U/L Result Diagrams: 03/17/17 16:36 03/17/17 16:36 Lab Statement: Any lab studies that have been ordered have been reviewed, and results considered in the medical decision making process.
[2017-03-17 20:17] LABS: Urine Bilirubin Negative (Negative); Urine Glucose Negative (Negative); Urine Nitrite Negative (Negative)
[2017-03-17 20:45] VITALS: BP 134/90
== END 2017-03-17 20:43 | disposition home or self-care (01) ==
LOC: ED 12:34
DX: R10.9 Unspecified abdominal pain (principal); Z87.891 Personal history of nicotine dependence
CPT/HCPCS: 36415; 74177; 80053; 81003; 83605; 83690; 85025; 86140; 99282; A9270-GY; Q9967

== ENCOUNTER 2017-04-24 10:33 | Emergency (ER) | payer OTHER ==
--- NOTE | 2017-04-24 11:18 | UC ---
Respiratory Complaint HPI - HPI Summary HPI Summary: 36 yo female with cough and wheezing x 2 weeks no f/c sob at times - History of Current Complaint Chief Complaint: UCRespiratory Stated Complaint: TROUBLE BREATHING/COUGH Time Seen by Provider: 04/24/17 11:16 Hx Obtained From: Patient Hx Last Menstrual Period: 04/05/17 Onset/Duration: Gradual Onset, Lasting Weeks Timing: Constant Severity Initially: Moderate Severity Currently: Moderate Pain Intensity: 2 Character: Cough: Productive Aggravating Factors: Nothing Alleviating Factors: Nothing Associated Signs And Symptoms: Positive: Dyspnea, Wheezing Related History: Similar Episode/Dx as: - bronchitis - Allergies/Home Medications Allergies/Adverse Reactions: Allergies Allergy/AdvReac Type Severity Reaction Status Date / Time Amoxicillin Allergy Severe turned Verified 04/24/17 10:38 blue and stopped breathing oranges Allergy Anaphylatic Uncoded 04/24/17 10:38 Shock PMH/Surg Hx/FS Hx/Imm Hx Previously Healthy: Yes Respiratory History: Bronchitis, Pneumonia Other History Of: Negative For: Anticoagulant Therapy - Surgical History Surgical History: Yes Surgery Procedure, Year, and Place: hernia repair. tonsils and adenoids as a child. Ectopic 2016, removal of r fallopian tube - Family History Known Family History: Positive: None - REVIEWED & NONCONTRIBUTORY, Hypertension , Other - Hx Ovarian, cervical, uterine cancers Negative: Cardiac Disease, Diabetes - Social History Alcohol Use: None Substance Use Type: None Smoking Status (MU): Former Smoker - Immunization History Most Recent Influenza Vaccination: no Review of Systems Constitutional: Negative Skin: Negative Eyes: Negative ENT: Negative Respiratory: Shortness Of Breath, Cough Cardiovascular: Negative Gastrointestinal: Negative Genitourinary: Negative Motor: Negative Neurovascular: Negative Musculoskeletal: Negative Neurological: Negative Psychological: Negative Is Patient Immunocompromised?: No All Other Systems Reviewed And Are Negative: Yes Physical Exam Triage Information Reviewed: Yes Appearance: Well-Appearing, No Pain Distress, Well-Nourished Vital Signs: Initial Vital Signs Temp 96.8 F 04/24/17 10:39 Pulse 86 04/24/17 10:39 Resp 16 04/24/17 10:39 BP 142/86 04/24/17 10:39 Pulse Ox 100 04/24/17 10:39 Eyes: Positive: Conjunctiva Clear ENT: Positive: Hearing grossly normal, TMs normal, Uvula midline. Negative: Nasal congestion, Nasal drainage, Tonsillar swelling, Tonsillar exudate, Trismus , Hoarse voice, Dental tenderness, Sinus tenderness Neck: Positive: Supple, Nontender, No Lymphadenopathy Respiratory: Positive: No accessory muscle use, Wheezing Cardiovascular: Positive: RRR, No Murmur Abdomen Description: Positive: No Organomegaly, Soft Musculoskeletal: Positive: ROM Intact, No Edema Neurological: Positive: Alert Psychological Exam: Normal Skin Exam: Normal UC Diagnostic Evaluation - Laboratory O2 Sat by Pulse Oximetry: 100 - normal/not hypoxic - Radiology Xray Interpretation: Positive (See Comments) - IMPRESSION: Radiology Interpretation Completed By: Radiologist Re-Evaluation - Re-Evaluation First Eval Re-Evaluation Time: 12:17 Change: Unchanged Comment: still wheezing Respiratory Course/Dx - Differential Dx/Diagnosis Provider Diagnoses: left upper lobe pneumonia. bronchospasm Discharge - Discharge Plan Condition: Stable Disposition: HOME Prescriptions: DOXYcycline CAP(*) [DOXYcycline 100MG CAP(*)] 100 mg PO BID #20 cap Prednisone [Deltasone] 40 mg PO DAILY #10 tab Patient Education Materials: Bronchospasm (ED), Pneumonia (ED) Referrals: No Primary Care Phys,NOPCP [Primary Care Provider] - Additional Instructions: see your MD on Friday if not improved GO TO THE ER IF YOUR BREATHING WORSENS you need to get rexrayed in 2-3 weeks to make sure this resolves
[2017-04-24] MEDS ORDERED: Albuterol 2.5 MG/3 ML NEB.SOL* (0.083%) INH ONE (11:22)
[2017-04-24] MEDS ORDERED: predniSONE TAB* 20 MG PO ONE (11:22)
[2017-04-24] MEDS ORDERED: Ipratropium 0.5MG/2.5ML NEB* 0.5 MG/2.5 ML NEB.SOLN INH ONE (11:22)
[2017-04-24 12:43] VITALS: BP 152/108
--- NOTE | 2017-04-24 12:51 | RAD ---
HISTORY: Wheezing COMPARISONS: August 17, 2004 VIEWS: 2: Frontal and lateral views of the chest. FINDINGS: CARDIOMEDIASTINAL SILHOUETTE: The cardiomediastinal silhouette is normal. PAMELA: The pamela are normal. PLEURA: The costophrenic angles are sharp. No pleural abnormalities are noted. LUNG PARENCHYMA: There is confluent alveolar opacification within the left upper lobe. ABDOMEN: The upper abdomen is clear. There is no subphrenic gas. BONES AND SOFT TISSUES: No bone or soft tissue abnormalities are noted. OTHER: None. IMPRESSION: LEFT UPPER LOBE CONSOLIDATION. RECOMMEND FOLLOW-UP UNTIL RESOLUTION TO EXCLUDE UNDERLYING PULMONARY PARENCHYMAL PATHOLOGY
[2017-04-24] MEDS ORDERED: Albuterol HFA INHALER* 8 gm MDI INH ONE (13:03)
== END 2017-04-24 13:13 | disposition home or self-care (01) ==
LOC: UCEAST 10:33
DX: J18.9 Pneumonia, unspecified organism (principal); J98.01 Acute bronchospasm; Z87.891 Personal history of nicotine dependence
CPT/HCPCS: 71020; 99213; A9270-GY; G0463; J7512; J7644

== ENCOUNTER 2018-01-28 14:11 | Emergency (ER) | payer OTHER ==
[2018-01-28 14:35] VITALS: BP 125/80
--- NOTE | 2018-01-28 15:04 | RAD ---
Indication: Left hand pain. 2 views of left hand demonstrates no fracture. No other bone or joint abnormalities identified. IMPRESSION: No fracture of the left hand is noted.
--- NOTE | 2018-01-28 15:13 | UC ---
Hand/Wrist HPI - HPI Summary HPI Summary: This patient is a 37 year old F presenting to [facility] [place] with a chief complaint of an aching L second digit pain since earlier today. The patient rates the pain 8/ 10 in severity. She ran her L second digit into a slicer at work. Patient reports swelling, pain, and difficulty moving the L index finger. Patient also c /o pain in finger and up through her L hand into her arm. - History Of Current Complaint Chief Complaint: UCUpperExtremity Stated Complaint: FINGER INJURY Time Seen by Provider: 01/28/18 14:41 Hx Obtained From: Patient Hx Last Menstrual Period: 01/16/2018 Onset/Duration: Sudden Onset, Lasting Hours, Still Present Severity Initially: Severe Severity Currently: Severe Pain Intensity: 8 Pain Scale Used: 0-10 Numeric Character Of Pain: Aching Aggravating Factor(s): Movement Alleviating Factor(s): Nothing Associated Signs And Symptoms: Positive: Swelling - Allergies/Home Medications Allergies/Adverse Reactions: Allergies Allergy/AdvReac Type Severity Reaction Status Date / Time amoxicillin Allergy Anaphylatic Verified 01/28/18 14:30 Shock oranges Allergy Anaphylatic Uncoded 01/28/18 14:30 Shock PMH/Surg Hx/FS Hx/Imm Hx Other History Of: Negative For: Anticoagulant Therapy - Surgical History Surgical History: Yes Surgery Procedure, Year, and Place: hernia repair. tonsils and adenoids as a child. Ectopic 2016, removal of r fallopian tube - Family History Known Family History: Positive: Hypertension, Other - Hx Ovarian, cervical, uterine cancers Negative: Cardiac Disease, Diabetes - Social History Alcohol Use: None Substance Use Type: None Smoking Status (MU): Former Smoker - Immunization History Most Recent Influenza Vaccination: no Review of Systems Constitutional: Fever - Denies fever Musculoskeletal: Other: - Pain and swelling in L index finger. Pain up through L hand into L arm. Difficulty moving the L index finger. All Other Systems Reviewed And Are Negative: Yes Physical Exam - Summary Physical Exam Summary: VITAL SIGNS: Reviewed. GENERAL: Patient is a well-developed and nourished FEMALE who is lying comfortable in the stretcher. Patient is not in any acute respiratory distress. HEAD AND FACE: Normocephalic EYES: PERRLA, EOMI x 2. EARS: Hearing grossly intact. MOUTH: Oropharynx within normal limits. NECK: Supple, trachea is midline, no adenopathy, no JVD, no carotid bruit. CHEST: Symmetric, no tenderness at palpation LUNGS: Clear to auscultation bilaterally. No wheezing or crackles. CVS: Regular rate and rhythm, S1 and S2 present, no murmurs or gallops appreciated. ABDOMEN: Soft, non-tender. Bowel sounds are normal. No abdominal abnormal pulsations. EXTREMITIES: Full ROM in all major joints, no edema, ecchymosis, no cyanosis or clubbing. NEURO: Alert and oriented x 3. No acute neurological deficits. Speech is normal and follows commands. SKIN: Dry and warm Triage Information Reviewed: Yes Vital Signs: Initial Vital Signs Temp 98.4 F 01/28/18 14:29 Pulse 71 01/28/18 14:29 Resp 18 01/28/18 14:29 BP 125/80 01/28/18 14:29 Pulse Ox 98 01/28/18 14:29 Vital Signs Reviewed: Yes Diagnostics - Radiology Hand X-Ray Radiology Interpretation Completed By: Radiologist - 15:00. No fracture of the left hand is noted. ED Physician has reviewed this imaging report. Hand/Wrist Course/Dx - Course Course Of Treatment: 37-year-old female presents to the urgent care with a chief complaint of left second digit pain. X-ray of the second digit negative for acute fracture dislocation. Therefore the patient will be discharged home with follow-up with PCP. Patient requested for one day off from work. - Differential Dx/Diagnosis Provider Diagnoses: Finger sprain Discharge - Sign-Out/Discharge Documenting (check all that apply): Patient Departure - D/C All imaging exams completed and their final reports reviewed: Yes - Discharge Plan Condition: Stable Disposition: HOME Patient Education Materials: Finger Sprain (ED) Forms: *Work Release Referrals: Bhupendra Jackson MD [Primary Care Provider] - Additional Instructions: Take medications as instructed and adhere to plan Take Acetaminophen or ibuprofen for pain or fever Increase your fluid intake Return to the or go to the emergency department if symptoms worsen Follow-up with primary care physician in next 2-3 days - Billing Disposition and Condition Condition: STABLE Disposition: Home - Attestation Statements Document Initiated by Scribe: Yes Documenting Scribe: Kiran Neri Provider For Whom Scribe is Documenting (Include Credential): Chato Huston MD Scribe Attestation: I, Kiran Neri, scribed for Chato Huston MD on 01/28/18 at 1608. Scribe Documentation Reviewed: Yes Provider Attestation: The documentation as recorded by the mimaibKiran cheng accurately reflects the service I personally performed and the decisions made by me, Chato Huston MD
== END 2018-01-28 15:45 | disposition home or self-care (01) ==
LOC: UCEAST 14:11
DX: S63.619A Unspecified sprain of unspecified finger, initial encounter (principal); Z88.0 Allergy status to penicillin; Z91.018 Allergy to other foods; Z87.891 Personal history of nicotine dependence; X58.XXXA Exposure to other specified factors, initial encounter; Y92.9 Unspecified place or not applicable; Y99.0 Civilian activity done for income or pay
CPT/HCPCS: 99211; G0463

== ENCOUNTER 2018-09-05 18:10 | Emergency (ER) | payer OTHER ==
[2018-09-05] MEDS ORDERED: Ibuprofen TAB* 400 MG PO ONE (18:22)
[2018-09-05 18:24] VITALS: BP 140/82
[2018-09-05] MEDS ORDERED: Tetan/Diph/Pertus SYR(Tdap)* 0.5 ML SYR(BOOSTRIX) use SYR IM ONE (18:25)
[2018-09-05] MEDS ORDERED: HYDROcodone/ACETAMIN 5-325 MG* 1 TAB PO ONE (18:26)
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
== END 2018-09-05 18:45 | disposition home or self-care (01) ==
LOC: UCEAST 18:10
DX: T23.101A Burn of first degree of right hand, unspecified site, initial encounter (principal); T31.0 Burns involving less than 10% of body surface; X10.2XXA Contact with fats and cooking oils, initial encounter; Y99.0 Civilian activity done for income or pay; Z88.3 Allergy status to other anti-infective agents
CPT/HCPCS: 90715; 99213; A9270-GY; G0463

== ENCOUNTER 2018-12-23 14:05 | Emergency (ER) | payer OTHER ==
[2018-12-23] MEDS ORDERED: NS 0.9% 1000 ML** 2,000 ML IV ONE (15:55)
[2018-12-23] MEDS ORDERED: Morphine 4 MG/ML VIAL (1 ml) 4 MG/ML VIAL IV PRN (15:55)
[2018-12-23] MEDS ORDERED: Ondansetron INJ* 2 MG/ML VIAL IV ONE (15:55)
--- NOTE | 2018-12-23 15:56 | ED ---
Abdominal Pain/Female - HPI Summary HPI Summary: This patient is a 38 year old F presenting to [facility] with a chief complaint of intermittently RLQ abdominal pain for a couple weeks. The pain intermittently radiates to the back. The pt came into the ED due to severe RLQ pain that began this morning at 0400. Pt was not able to come to the ED until her sister came to pick her up at 1300. Pt reports she is routinely woken up at night by the pain. Symptoms aggravated by eating. She reports she is scared to eat, and pt passed out after blood was drawn. Pt has a PMHx of ectopic . Pts last period was at the beginning of this month. Patient reports nausea. Patient denies vomiting. - History of Current Complaint Chief Complaint: EDAbdPain Stated Complaint: SEVERE ABD PAIN/NAUSEA PER PT Time Seen by Provider: 12/23/18 15:48 Hx Obtained From: Patient Hx Last Menstrual Period: 01/16/2018 ?: No Onset/Duration: Lasting Weeks, Still Present Timing: Intermittent Episode Lasting Severity Currently: Severe Pain Intensity: 9 Pain Scale Used: 0-10 Numeric Location: Discrete At: RLQ Radiates: Yes Radiates to: Back Aggravating Factor(s): Food Alleviating Factor(s): Nothing Associated Signs and Symptoms: Positive: Back Pain, Decreased Appetite, Nausea. Negative: Vomiting Allergies/Adverse Reactions: Allergies Allergy/AdvReac Type Severity Reaction Status Date / Time amoxicillin Allergy Anaphylatic Verified 12/23/18 14:14 Shock oranges Allergy Anaphylatic Uncoded 12/23/18 14:14 Shock PMH/Surg Hx/FS Hx/Imm Hx Endocrine/Hematology History: Denies: Hx Anticoagulant Therapy, Hx Blood Disorders, Hx Diabetes, Hx Thyroid Disease, Hx Unexplained Bleeding Cardiovascular History: Denies: Hx Hypertension Respiratory History: Denies: Hx Asthma, Hx Chronic Obstructive Pulmonary Disease (COPD) GI History: Denies: Hx Cirrhosis, Hx Crohn's Disease, Hx Diverticulosis, Hx Gall Bladder Disease, Hx Gastroesophageal Reflux Disease, Hx Gastrointestinal Bleed, Hx Hiatal Hernia, Hx Irritable Bowel, Hx Obstructive Bowel, Hx Ulcer History: Denies: Hx Kidney Infection, Hx Kidney Stones, Hx Renal Disease Neurological History: Reports: Hx Seizures - Surgical History Surgery Procedure, Year, and Place: hernia repair. tonsils and adenoids as a child. Ectopic 2016, removal of r fallopian tube Infectious Disease History: No Infectious Disease History: Denies: Hx Clostridium Difficile, Hx Hepatitis, Hx Human Immunodeficiency Virus (HIV), Hx of Known/Suspected MRSA, Hx Shingles, Hx Tuberculosis, Hx Known/ Suspected VRE, Hx Known/Suspected VRSA, History Other Infectious Disease, Traveled Outside the [place] in Last 30 Days - Family History Known Family History: Positive: Hypertension, Other - Hx Ovarian, cervical, uterine cancers Negative: Cardiac Disease, Diabetes - Social History Alcohol Use: None Hx Substance Use: No Substance Use Type: Reports: None Hx Tobacco Use: No Smoking Status (MU): Former Smoker Type: Cigarettes Review of Systems Positive: Other - Decreased appetite Positive: Abdominal Pain, Nausea. Negative: Vomiting Positive: Other - back pain Positive: Syncope All Other Systems Reviewed And Are Negative: Yes Physical Exam - Summary Physical Exam Summary: Appearance: Well-appearing, Well-nourished, lying in bed comfortably Skin: Warm, dry, no obvious rash Eyes: sclera anicteric, no conjunctival pallor ENT: mucous membranes moist, pharynx appears normal Neck: Supple, nontender Respiratory: Clear to auscultation, no signs of respiratory distress Cardiovascular: Normal S1, S2. No murmurs. Normal distal pulses in tibial and radial bilaterally. Abdomen: Soft, Upper abdomen tenderness without peritoneal signs, normal active bowel sounds present Musculoskeletal: Normal, Strength/ROM Intact Neurological: A&Ox3, awake and alert, mentation is normal, speech is fluent and appropriate Psychiatric: affect is normal, does not appear anxious or depressed Triage Information Reviewed: Yes Vital Signs On Initial Exam: Initial Vitals Temp Pulse Resp BP Pulse Ox 97.0 F 79 16 127/90 99 12/23/18 14:10 12/23/18 14:10 12/23/18 14:10 12/23/18 14:10 12/23/18 14:10 Vital Signs Reviewed: Yes Diagnostics - Vital Signs Vital Signs Temp Pulse Resp BP Pulse Ox 12/23/18 14:10 97.0 F 79 16 127/90 99 - Laboratory Result Diagrams: 12/23/18 17:35 12/23/18 17:35 Lab Statement: Any lab studies that have been ordered have been reviewed, and results considered in the medical decision making process. - Ultrasound Gallbladder US Ultrasound Interpretation Completed By: Radiologist Summary of Ultrasound Findings: Gallbladder US reveals, per radiologist, IMPRESSION: #. Negative for gallbladder pathology. #. Chronic cortical thinning at the upper pole of the RIGHT kidney is similar to the 2017 CT and symmetric with the LEFT kidney on prior CT likely representing normal variation for this patient. ED physician has reviewed this radiology report. Re-Evaluation - Re-Evaluation Second Eval Re-Evaluation Time: 17:40 Comment: Discussed results and plan of care with pt. Abdominal Pain Fem Course/Dx - Course Course Of Treatment: This patient is a 38 year old F presenting to [facility] with a chief complaint of intermittently RLQ abdominal pain for a couple weeks. The pain intermittently radiates to the back. The pt came into the ED due to severe RLQ pain that began this morning at 0400. Pt reports she is routinely woken up at night by the pain. Symptoms aggravated by eating. She reports she is scared to eat, and pt passed out after blood was drawn. Patient reports nausea. Patient denies vomiting. Blood work obtained. WBC is 12.7, RBC is 5.41. Gallbladder US reveals, per radiologist, IMPRESSION: #. Negative for gallbladder pathology. #. Chronic cortical thinning at the upper pole of the RIGHT kidney is similar to the 2017 CT and symmetric with the LEFT kidney on prior CT likely representing normal variation for this patient. Patient will be discharged with prescription for Omeprazole and follow up from PCP. The patient is agreeable with this plan. - Diagnoses Provider Diagnoses: Gastritis Discharge - Sign-Out/Discharge Documenting (check all that apply): Patient Departure - Discharge Patient Received Moderate/Deep Sedation with Procedure: No - Discharge Plan Condition: Good Disposition: HOME Prescriptions: Omeprazole CAP (NF) [Prilosec CAP* 20 MG] 20 mg PO DAILY #30 cap. Patient Education Materials: Gastritis (ED) Referrals: Bhupendra Jackson MD [Primary Care Provider] - - Attestation Statements Document Initiated by Scribe: Yes Documenting Scribe: Micaela Gil Provider For Whom Manoloibprosper is Documenting (Include Credential): Dr. Chaparro Costa MD Scribe Attestation: Micaela Loza, scribed for Dr. Chaparro Costa MD on 12/23/18 at 2084. Status of Scribe Document: Ready
[2018-12-23 17:49] LABS: ABS Basophils 0.1 10^3/ul (0-0.2); ABS Eosinophils 0.2 10^3/ul (0-0.6); ABS Lymphocytes 2.6 10^3/ul (1.0-4.8); ABS Monocytes 0.8 10^3/ul (0-0.8); Eosinophil % 1.7 %; Hematocrit 46 % (35-47); Hemoglobin 15.4 g/dL (12.0-16.0); Lymphocyte % 20.3 %; Mean Corpuscular HGB Conc 34 g/dL (31-36); Mean Corpuscular Hemoglobin 29 pg (27-31); Mean Corpuscular Volume 84 fL (80-97); Mean Platelet Volume 9.1 fL (7.4-10.4); Nucleated Red Blood Cells % 0.1; Platelet Count 197 10^3/uL (150-450); Red Blood Count 5.41 10^6 /uL (3.70-4.87); Red Cell Distribution Width 15 % (10-15); White Blood Count 12.7 10^3/uL (3.5-10.8)
[2018-12-23 18:13] LABS: HCG Pregnancy < 0.60 mIU/mL
[2018-12-23 18:33] LABS: Albumin 4.5 g/dL (3.2-5.2); Anion Gap 8 mmol/L (2-11); CO2 Carbon Dioxide 21 mmol/L (22-32); Calcium 9.4 mg/dL (8.6-10.3); Chloride 107 mmol/L (101-111); Potassium 4.1 mmol/L (3.5-5.0); Sodium 136 mmol/L (135-145)
[2018-12-23 18:39] LABS: ALT 12 U/L (7-52); AST 13 U/L (13-39); Albumin/Globulin Ratio 1.6 (1-3); Alkaline Phosphatase 54 U/L (34-104); BUN/Creatinine Ratio 14.5 (8-20); Blood Urea Nitrogen 11 mg/dL (6-24); C Reactive Protein 2.79 mg/L (<8.01); EGFR African American 103.6 (>60); EGFR Non-African American 85.6 (>60); Globulin 2.8 g/dL (2-4); Glucose 85 mg/dL (70-100); Total Protein 7.3 g/dL (6.4-8.9)
[2018-12-23 18:59] LABS: Urine Appearance Cloudy; Urine Bacteria 1+ (Absent); Urine Bilirubin Negative (Negative); Urine Blood Negative (Negative); Urine Color Yellow; Urine Glucose Negative (Negative); Urine Ketones Negative (Negative); Urine Nitrite Negative (Negative); Urine Protein Negative (Negative); Urine Red Blood Cell Trace(0-2/hpf) (Absent); Urine Specific Gravity 1.016 (1.010-1.030); Urine Squamous Epithelial Cell Present (Absent); Urine Urobilinogen Negative (Negative); Urine White Blood Cell Trace(0-5/hpf) (Absent)
[2018-12-23 19:53] VITALS: BP 101/69
== END 2018-12-23 19:52 | disposition home or self-care (01) ==
LOC: ED 14:05
DX: K29.70 Gastritis, unspecified, without bleeding (principal); M54.9 Dorsalgia, unspecified; Z88.0 Allergy status to penicillin; Z91.018 Allergy to other foods; Z87.891 Personal history of nicotine dependence
CPT/HCPCS: 36415; 76705; 80053; 81003; 81015; 83605; 84702; 85025; 86140; 87086; 96361; 96374; 96375; 99282; J2270; J2405

== ENCOUNTER 2019-06-21 09:32 | Emergency (ER) | payer OTHER ==
[2019-06-21] MEDS ORDERED: Ondansetron INJ* 2 MG/ML VIAL IV ONE (10:24)
--- NOTE | 2019-06-21 10:30 | ED ---
Abdominal Pain/Female - HPI Summary HPI Summary: This pt is a 38 Y/O F presenting to [facility] accompanied by her son with a CC of pain emanating from her umbilical region and is currently rated a 6/10 in severity. She states that she was unable to sleep last night due to intermittent pain that occurred every hour. 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 She states that she is currently nauseous and eating has been causing an increase in her symptoms. She states that lifting and bending has also been aggravating her symptoms. She denies any fevers, chills, diarrhea, and vomiting. She has no alleviating factors. She has a PMHx of umbilical hernia. Last BM today - History of Current Complaint Chief Complaint: EDAbdPain Stated Complaint: ABD PAIN Time Seen by Provider: 06/21/19 09:44 Hx Obtained From: Patient Hx Last Menstrual Period: 01/16/2018 Onset/Duration: Sudden Onset, Lasting Weeks - 2, Still Present Timing: Constant Severity Initially: Moderate Severity Currently: Moderate Pain Intensity: 6 Pain Scale Used: 0-10 Numeric Location: Umbilical Radiates: No Character: Other: - "pulling" Aggravating Factor(s): Food, Movement, Other: - lifting Alleviating Factor(s): Nothing Associated Signs and Symptoms: Positive: Nausea. Negative: Fever, Vomiting, Diarrhea Allergies/Adverse Reactions: Allergies Allergy/AdvReac Type Severity Reaction Status Date / Time amoxicillin Allergy Anaphylatic Verified 06/21/19 09:36 Shock oranges Allergy Anaphylatic Uncoded 06/21/19 09:36 Shock PMH/Surg Hx/FS Hx/Imm Hx Previously Healthy: Yes Endocrine/Hematology History: Denies: Hx Anticoagulant Therapy, Hx Blood Disorders, Hx Diabetes, Hx Thyroid Disease, Hx Unexplained Bleeding Cardiovascular History: Denies: Hx Hypertension Respiratory History: Denies: Hx Asthma, Hx Chronic Obstructive Pulmonary Disease (COPD) GI History: Denies: Hx Cirrhosis, Hx Crohn's Disease, Hx Diverticulosis, Hx Gall Bladder Disease, Hx Gastroesophageal Reflux Disease, Hx Gastrointestinal Bleed, Hx Hiatal Hernia, Hx Irritable Bowel, Hx Obstructive Bowel, Hx Ulcer History: Denies: Hx Kidney Infection, Hx Kidney Stones, Hx Renal Disease Neurological History: Reports: Hx Seizures - Cancer History Hx Chemotherapy: No Hx Radiation Therapy: No - Surgical History Surgical History: Yes Surgery Procedure, Year, and Place: hernia repair. tonsils and adenoids as a child. Ectopic 2016, removal of r fallopian tube - Immunization History Immunizations Up to Date: Yes Infectious Disease History: No Infectious Disease History: Denies: Hx Clostridium Difficile, Hx Hepatitis, Hx Human Immunodeficiency Virus (HIV), Hx of Known/Suspected MRSA, Hx Shingles, Hx Tuberculosis, Hx Known/ Suspected VRE, Hx Known/Suspected VRSA, History Other Infectious Disease, Traveled Outside the [place] in Last 30 Days - Family History Known Family History: Positive: Hypertension, Other - Hx Ovarian, cervical, uterine cancers Negative: Cardiac Disease, Diabetes - Social History Occupation: Employed Full-time Lives: With Family Alcohol Use: None Hx Substance Use: No Substance Use Type: Reports: None Hx Tobacco Use: No Smoking Status (MU): Former Smoker Type: Cigarettes Review of Systems Negative: Fever, Chills Positive: Abdominal Pain - umbilical , Nausea. Negative: Vomiting, Diarrhea All Other Systems Reviewed And Are Negative: Yes Physical Exam - Summary Physical Exam Summary: Constitutional: Well-developed, Well-nourished, Alert. (-) Distressed Skin: Warm, Dry HENT: Normocephalic; Atraumatic Eyes: Conjunctiva normal Neck: Musculoskeletal ROM normal neck. (-) JVD, (-) Stridor, (-) Nuchal rigidity Cardio: Rhythm regular, rate normal, Heart sounds normal; Intact distal pulses; Radial pulses are 2+ and symmetric. (-) Murmur Pulmonary/Chest wall: Effort normal. (-) Respiratory distress, (-) Wheezes, (-) Rales Abd: Soft, Slight epigastric tenderness (-) Distension, (-) Guarding, (-) Rebound Musculoskeletal: (-) Edema Lymph: (-) Cervical adenopathy Neuro: Alert, Oriented x3 Psych: Mood and affect Normal Triage Information Reviewed: Yes Vital Signs On Initial Exam: Initial Vitals Temp Pulse Resp BP Pulse Ox 98.1 F 60 17 154/93 100 06/21/19 09:33 06/21/19 09:33 06/21/19 09:33 06/21/19 09:33 06/21/19 09:33 Vital Signs Reviewed: Yes Procedures - Sedation Patient Received Moderate/Deep Sedation with Procedure: No Diagnostics - Vital Signs Vital Signs Temp Pulse Resp BP Pulse Ox 06/21/19 09:33 98.1 F 60 17 154/93 100 - Laboratory Result Diagrams: 06/21/19 10:13 06/21/19 10:19 Lab Statement: Any lab studies that have been ordered have been reviewed, and results considered in the medical decision making process. - CT CT A/P CT Interpretation Completed By: Radiologist Summary of CT Findings: No abnormal masses or fluid collections are noted. Follicular cysts are noted in both ovaries. Small hepatic cyst is noted unchanged from 2017. ED physician has reviewed this report. Re-Evaluation - Re-Evaluation First Eval Re-Evaluation Time: Change: Improved - d/w patient negative CT, large stool burden. Constipation could be contributing to her pain, sent home on Colace. Abdominal Pain Fem Course/Dx - Course Course Of Treatment: 38-year-old female with history of nuchal hernia presents with central abdominal pain. - DDx includes functional abdominal pain, constipation, hernia, pancreatitis, GERD, renal stone, Less likely SBO, ectopic , PID, ovarian torsion, fibroids. Exam relatively unremarkable today, no rigidity or suggestions of acute surgical abd. Pt with negative Ken's on exam. Will give zofran Lipase to evaluate for pancreatitis. Will obtain cbc to assess for underlying infection. Cmp. Serum to r/o ectopic. Less likely ovarian torsion given location of pain and no focal TTP on. Does have hx hernia, lower suspicion for incacerated hernia (having BM) - Diagnoses Provider Diagnoses: Abdominal pain, Constipation Discharge ED - Sign-Out/Discharge Documenting (check all that apply): Patient Departure - discharge - Discharge Plan Condition: Stable Disposition: HOME Prescriptions: Docusate CAP* [Colace Cap*] 100 mg PO DAILY 30 Days #30 cap Patient Education Materials: Constipation (ED), Acute Abdominal Pain (ED) Referrals: Odalys Lyle MD [Primary Care Provider] - 2 Days Additional Instructions: You were seen in the emergency department for abdominal pain and nausea. Your CT scan did not show any abnormality, it did show some constipation. You can take Colace Please follow up with your primary care doctor in next 2-3 days and return to emergency department for worsening pain, inability eat or drink, or concerning symptoms. It was a pleasure taking care of you today. - Billing Disposition and Condition Condition: STABLE Disposition: Home - Attestation Statements Document Initiated by Scribe: Yes Documenting Scribe: Mikey Luna Provider For Whom Scribe is Documenting (Include Credential): Sara Gallego MD Scribe Attestation: I, Mikey Luna, scribed for Sara Gallego MD on 06/21/19 at 1343. Scribe Documentation Reviewed: Yes Provider Attestation: The documentation as recorded by the [email or web address] accurately reflects the service I personally performed and the decisions made by me, Sara Gallego MD Status of Scribe Document: Viewed
[2019-06-21 10:31] LABS: ABS Basophils 0.1 10^3/ul (0-0.2); ABS Eosinophils 0.2 10^3/ul (0-0.6); ABS Lymphocytes 2.4 10^3/ul (1.0-4.8); ABS Monocytes 0.5 10^3/ul (0-0.8); ABS Neutrophils 5.4 10^3/ul (1.5-7.7); Eosinophil % 2.2 %; Hematocrit 40 % (35-47); Hemoglobin 13.6 g/dL (12.0-16.0); Lymphocyte % 28.1 %; Mean Corpuscular HGB Conc 34 g/dL (31-36); Mean Corpuscular Hemoglobin 27 pg (27-31); Mean Corpuscular Volume 81 fL (80-97); Mean Platelet Volume 8.3 fL (7.4-10.4); Platelet Count 252 10^3/uL (150-450); Red Blood Count 5.01 10^6 /uL (3.70-4.87); Red Cell Distribution Width 15 % (10-15); White Blood Count 8.7 10^3/uL (3.5-10.8)
[2019-06-21 10:43] LABS: ALT 13 U/L (7-52); AST 12 U/L (13-39); Albumin 4.1 g/dL (3.2-5.2); Albumin/Globulin Ratio 1.4 (1-3); Alkaline Phosphatase 58 U/L (34-104); Anion Gap 4 mmol/L (2-11); Blood Urea Nitrogen 15 mg/dL (6-24); CO2 Carbon Dioxide 26 mmol/L (22-32); Calcium 9.3 mg/dL (8.6-10.3); Chloride 105 mmol/L (101-111); EGFR African American 105.2 (>60); Globulin 2.9 g/dL (2-4); Glucose 85 mg/dL (70-100); Potassium 4.2 mmol/L (3.5-5.0); Sodium 135 mmol/L (135-145)
[2019-06-21 10:49] LABS: HCG Pregnancy < 0.60 mIU/mL
[2019-06-21] MEDS ORDERED: Iohexol 300* (CONTRAST) 10 ML SDV IV ONE (11:12)
[2019-06-21 13:34] VITALS: BP 130/82
== END 2019-06-21 13:34 | disposition home or self-care (01) ==
LOC: ED 09:32
DX: R10.9 Unspecified abdominal pain (principal); K59.00 Constipation, unspecified; R11.0 Nausea; Z87.891 Personal history of nicotine dependence; K21.9 Gastro-esophageal reflux disease without esophagitis; Z87.442 Personal history of urinary calculi
CPT/HCPCS: 36415; 74177; 80053; 83690; 84702; 85025; 96374; 99282; J2405; Q9967

== ENCOUNTER 2019-09-25 10:21 | Emergency (ER) | payer MEDICAID, OTHER ==
[2019-09-25] MEDS ORDERED: Ketorolac INJ* 30 MG/ML 1 ML VIAL IV ONE ×2 (10:38)
[2019-09-25] MEDS ORDERED: NS 0.9% 1000 ML** 1,000 ML IV ONE ×2 (10:38)
--- NOTE | 2019-09-25 10:45 | ED ---
Abdominal Pain/Female - HPI Summary HPI Summary: The patient is a 39-year-old female [place] [facility] [facility] with a chief complaint of right pelvic pain since yesterday. Pain is rated 9/10 in severity as it radiates to the back. She endorses nausea but no vomiting. She reports vaginal bleeding although her last normal menstrual period was at the end of August, so she is not expecting her cycle until the end of this month. She does not believe she is at this time. No recent travel or known sick contact. Past medical history includes ectopic , right salpingectomy, hernia repair, seizures. Former smoker. No alcohol or substance use. Medications reviewed. Allergies noted. - History of Current Complaint Chief Complaint: EDAbdPain Stated Complaint: RIGHT PELVIC PAIN Time Seen by Provider: 09/25/19 10:27 Hx Obtained From: Patient Hx Last Menstrual Period: August 2019 Onset/Duration: Lasting Hours, Still Present Timing: Constant Severity Initially: Moderate Severity Currently: Severe Pain Intensity: 9 Pain Scale Used: 0-10 Numeric Location: Other - right pelvic Radiates: Yes Radiates to: Back Character: Sharp Aggravating Factor(s): Nothing Alleviating Factor(s): Nothing Associated Signs and Symptoms: Positive: Vaginal Bleeding, Nausea. Negative: Vomiting Allergies/Adverse Reactions: Allergies Allergy/AdvReac Type Severity Reaction Status Date / Time amoxicillin Allergy Anaphylatic Verified 06/21/19 09:36 Shock oranges Allergy Anaphylatic Uncoded 06/21/19 09:36 Shock Home Medications: Home Medications Docusate CAP* [Colace Cap*] 100 mg PO DAILY 30 Days #30 cap 06/21/19 [Rx] PMH/Surg Hx/FS Hx/Imm Hx Endocrine/Hematology History: Denies: Hx Anticoagulant Therapy, Hx Blood Disorders, Hx Diabetes, Hx Thyroid Disease, Hx Unexplained Bleeding Cardiovascular History: Denies: Hx Hypercholesterolemia, Hx Hypertension Respiratory History: Denies: Hx Asthma, Hx Chronic Obstructive Pulmonary Disease (COPD) GI History: Denies: Hx Cirrhosis, Hx Crohn's Disease, Hx Diverticulosis, Hx Gall Bladder Disease, Hx Gastroesophageal Reflux Disease, Hx Gastrointestinal Bleed, Hx Hiatal Hernia, Hx Irritable Bowel, Hx Obstructive Bowel, Hx Ulcer History: Denies: Hx Kidney Infection, Hx Kidney Stones, Hx Renal Disease Neurological History: Reports: Hx Seizures - Cancer History Hx Chemotherapy: No Hx Radiation Therapy: No - Surgical History Surgical History: Yes Surgery Procedure, Year, and Place: hernia repair. tonsils and adenoids as a child. Ectopic 2016, removal of r fallopian tube Infectious Disease History: No Infectious Disease History: Denies: Hx Clostridium Difficile, Hx Hepatitis, Hx Human Immunodeficiency Virus (HIV), Hx of Known/Suspected MRSA, Hx Shingles, Hx Tuberculosis, Hx Known/ Suspected VRE, Hx Known/Suspected VRSA, History Other Infectious Disease, Traveled Outside the [place] in Last 30 Days - Family History Known Family History: Positive: Hypertension, Other - Hx Ovarian, cervical, uterine cancers Negative: Cardiac Disease, Diabetes - Social History Alcohol Use: None Hx Substance Use: No Substance Use Type: Reports: None Hx Tobacco Use: No Smoking Status (MU): Former Smoker Type: Cigarettes Review of Systems Positive: Abdominal Pain - right pelvic, Nausea. Negative: Vomiting Positive: other - vaginal bleeding All Other Systems Reviewed And Are Negative: Yes Physical Exam - Summary Physical Exam Summary: VITAL SIGNS: Reviewed. GENERAL: Patient is a well-developed and nourished female who is lying comfortable in the stretcher. Patient is not in any acute respiratory distress. HEAD AND FACE: Normocephalic and atraumatic. EYES: PERRLA, EOMI x 2, No injected conjunctiva. EARS: Hearing grossly intact. Ear canals and tympanic membranes are WNL. MOUTH: Oropharynx within normal limits. NECK: Supple, trachea is midline, no adenopathy, no JVD. CHEST: Symmetric, no tenderness at palpation. LUNGS: Clear to auscultation bilaterally. No wheezing or crackles. CVS: RRR, S1 and S2 present, no murmurs or gallops appreciated. ABDOMEN: Soft, right pelvic tenderness. No signs of distention. Positive bowel sounds. No rebound, no guarding, and no masses palpated. No abdominal bruit or pulsations. EXTREMITIES: FROM in all major joints, no edema, no cyanosis or clubbing. NEURO: Alert and oriented x 3. No acute neurological deficits. Speech is normal. SKIN: Dry and warm. 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 External genitalia: within normal limits. No rashes, lesions or ecchymosis. Positive vaginal bleeding. Triage Information Reviewed: Yes Vital Signs On Initial Exam: Initial Vitals Temp Pulse Resp BP Pulse Ox 98.4 F 85 16 145/100 98 09/25/19 10:24 09/25/19 10:24 09/25/19 10:24 09/25/19 10:24 09/25/19 10:24 Vital Signs Reviewed: Yes Procedures - Sedation Patient Received Moderate/Deep Sedation with Procedure: No Diagnostics - Vital Signs Vital Signs Temp Pulse Resp BP Pulse Ox 09/25/19 10:24 98.4 F 85 16 145/100 98 - Laboratory Result Diagrams: 09/25/19 10:59 09/25/19 10:59 Lab Statement: Any lab studies that have been ordered have been reviewed, and results considered in the medical decision making process. - CT Abdomen/Pelvis CT CT Interpretation Completed By: Radiologist Summary of CT Findings: Impression: No clear etiology for abdominal pain. Dr. Huston has reviewed this report. - Ultrasound Pelvic/Transvaginal US Ultrasound Interpretation Completed By: Radiologist Summary of Ultrasound Findings: Impression: Unremarkable pelvic ultrasound. Dr. Huston has reviewed this report. Re-Evaluation - Re-Evaluation First Eval Re-Evaluation Time: 13:45 Comment: I discussed all results and plan for discharge. Abdominal Pain Fem Course/Dx - Course Course Of Treatment: The patient is a 39-year-old female [place] [facility] [place] [facility] [place] with a chief complaint of right pelvic pain since yesterday. Pain is rated 9/10 in severity as it radiates to the back. She endorses nausea but no vomiting. She reports vaginal bleeding although her last normal menstrual period was at the end of August, so she is not expecting her cycle until the end of this month. She does not believe she is at this time. No recent travel or known sick contact. Past medical history includes ectopic , right salpingectomy, hernia repair, seizures. Former smoker. No alcohol or substance use. Medications reviewed. Allergies noted. In the ED course, the patient was placed on a monitor technician, IV access was obtained, IV fluids started. Toradol was given for pain. Past medical records reviewed. Blood test w/o a significant abnormality except for glucose 137. test is negative. Pelvic U/S impression: unremarkable pelvic ultrasound. Abdominal and pelvic CT: impression: no clear etiology for abdominal pain. I discussed all the findings and test results with the patient. Patient was instructed to return to the emergency room immediately if any of the symptoms return or worsen. Plan of care was discussed with the patient and understands and agrees. All questions were answered at patient satisfaction. There were no further complaints or concerns. Lung exam before discharge: CTA B/L. Good air exchange. No wheezing or crackles heard. CVS: S1 and S2 present. No murmurs appreciated. Patient is alert and oriented x 3. Patient is hemodynamically stable. Patient will be discharged home with follow up PCP in the next 2-3 days. - Diagnoses Differential Diagnosis: Positive: Appendicitis, Bowel Obstruction, Constipation , Diverticulitis, , Renal Colic Provider Diagnoses: Lower abdominal pain - Critical Care Time Critical Care Statement: Critical care time is provided exclusive of any time spent performing procedures. Discharge ED - Sign-Out/Discharge Documenting (check all that apply): Patient Departure - Patient will be discharged home. - Discharge Plan Condition: Stable Disposition: HOME Patient Education Materials: Abdominal Pain (ED) Referrals: Odalys Lyle MD [Primary Care Provider] - 3 Days Additional Instructions: Follow up with your primary care provider in 2-3 days. Return to the emergency department for any new or worsening symptoms. - Billing Disposition and Condition Condition: STABLE Disposition: Home - Attestation Statements Document Initiated by Manoloibprosper: Yes Documenting Scribe: Loren Rivas Provider For Whom [place] is Documenting (Include Credential): Chato Huston MD Scribe Attestation: Loren Loza scribed for Chato Husotn MD on 09/26/19 at 1122. Scribe Documentation Reviewed: Yes Provider Attestation: The documentation as recorded by the Loren ervin accurately reflects the service I personally performed and the decisions made by me, Chato Huston MD Status of Scribe Document: Viewed
[2019-09-25 11:09] LABS: ABS Basophils 0.1 10^3/ul (0-0.2); ABS Eosinophils 0.2 10^3/ul (0-0.6); ABS Monocytes 0.7 10^3/ul (0-0.8); Eosinophil % 2.2 %; Hematocrit 44 % (35-47); Hemoglobin 14.7 g/dL (12.0-16.0); Lymphocyte % 20.3 %; Mean Corpuscular HGB Conc 34 g/dL (31-36); Mean Corpuscular Hemoglobin 27 pg (27-31); Mean Corpuscular Volume 81 fL (80-97); Mean Platelet Volume 8.4 fL (7.4-10.4); Platelet Count 278 10^3/uL (150-450); Red Blood Count 5.42 10^6 /uL (3.70-4.87); Red Cell Distribution Width 15 % (10-15)
[2019-09-25 11:26] LABS: ALT 15 U/L (7-52); AST 14 U/L (13-39); Albumin 4.3 g/dL (3.2-5.2); Albumin/Globulin Ratio 1.3 (1-3); Alkaline Phosphatase 66 U/L (34-104); Anion Gap 5 mmol/L (2-11); BUN/Creatinine Ratio 22.1 (8-20); Blood Urea Nitrogen 17 mg/dL (6-24); C Reactive Protein 3.72 mg/L (<8.01); CO2 Carbon Dioxide 25 mmol/L (22-32); Calcium 9.5 mg/dL (8.6-10.3); Chloride 106 mmol/L (101-111); EGFR African American 101.5 (>60); EGFR Non-African American 83.9 (>60); Globulin 3.3 g/dL (2-4); Glucose 137 mg/dL (70-100); Potassium 3.6 mmol/L (3.5-5.0); Sodium 136 mmol/L (135-145); Total Protein 7.6 g/dL (6.4-8.9)
[2019-09-25 11:33] LABS: HCG Pregnancy < 0.60 mIU/mL
[2019-09-25] MEDS ORDERED: Iohexol 300* (CONTRAST) 10 ML SDV IV ONE (12:20)
[2019-09-25 14:03] VITALS: BP 140/87
== END 2019-09-25 14:03 | disposition home or self-care (01) ==
LOC: ED 10:21
DX: R10.30 Lower abdominal pain, unspecified (principal); R10.2 Pelvic and perineal pain; N93.9 Abnormal uterine and vaginal bleeding, unspecified; Z88.0 Allergy status to penicillin; Z87.891 Personal history of nicotine dependence
CPT/HCPCS: 36415; 74177; 76830; 76856; 80053; 83605; 83690; 84702; 85025; 85730; 86140; 96361; 96374; 99283; J1885; Q9967

== ENCOUNTER 2021-01-07 19:41 | Inpatient (IN) ==
[2021-01-07] MEDS ORDERED: Lactated Ringers 1000 ml BAG 1,000 ML IV ONE ×2 (20:01→20:31)
[2021-01-07] MEDS ORDERED: Buffered Lidocaine 1% SYRIN 1 ml INTRADERM ONE (20:01)
[2021-01-07 20:24] LABS: ABS Eosinophils 0.1 10^3/ul (0-0.6); ABS Lymphocytes 2.2 10^3/ul (1.0-4.8); ABS Monocytes 0.8 10^3/ul (0-0.8); ABS Neutrophils 10.6 10^3/ul (1.5-7.7); Eosinophil % 0.4 %; Hematocrit 40 % (35-47); Hemoglobin 13.8 g/dL (12.0-16.0); Lymphocyte % 16.1 %; Mean Corpuscular HGB Conc 34 g/dL (31-36); Mean Corpuscular Hemoglobin 29 pg (27-31); Mean Corpuscular Volume 84 fL (80-97); Mean Platelet Volume 8.9 fL (7.4-10.4); Nucleated Red Blood Cells % 0.1; Platelet Count 253 10^3/uL (150-450); Red Blood Count 4.77 10^6 /uL (3.70-4.87); Red Cell Distribution Width 16 % (10-15); White Blood Count 13.7 10^3/uL (3.5-10.8)
[2021-01-07] MEDS ORDERED: Phenylephrine 40 mcg/mL 10mL (400mcg) SYRINGE IV PUSH PRN ×2 (20:31)
[2021-01-07] MEDS ORDERED: Sodium Citrate/Citric Acid LIQ 15 ML UDC PO PRN (20:31)
[2021-01-07 20:44] LABS: Albumin 3.7 g/dL (3.2-5.2); Albumin/Globulin Ratio 1.1 (1-3); Calcium 9.2 mg/dL (8.6-10.3); EGFR African American 132.1 (>60); EGFR Non-African American 109.2 (>60); Globulin 3.3 g/dL (2-4); Total Bilirubin 0.4 mg/dL (0.2-1.0)
[2021-01-07] MEDS ORDERED: Vancomycin 1,500 MG in NS 0.9% 250 ml 250 ML IVPB ONE (20:45)
[2021-01-07] MEDS ORDERED: Lactated Ringers 1000 ml BAG 1,000 ML IV SCH ×2 (21:00)
[2021-01-07] MEDS ORDERED: OBEPIDURAL 250 ML EPIDURAL SCH (21:00)
[2021-01-07 21:36] LABS: Urine Appearance Turbid; Urine Bilirubin Negative (Negative); Urine Blood 3+ (Negative); Urine Color Amber; Urine Glucose Negative (Negative); Urine Ketones Negative (Negative); Urine Nitrite Negative (Negative); Urine Protein 2+(100 mg/dL) (Negative); Urine Specific Gravity 1.023 (1.002-1.030); Urine Urobilinogen Negative (Negative)
[2021-01-07 21:45] LABS: Urine Bacteria Absent (Absent); Urine Red Blood Cell 3+(>10/hpf) (Absent); Urine Squamous Epithelial Cell Present (Absent); Urine White Blood Cell 3+(>20/hpf) (Absent)
[2021-01-07 21:57] LABS: Urine Benzodiazepine Screen None Detected (None Detect); Urine Cannabinoids Screen None Detected (None Detect); Urine Opiates Screen None Detected (None Detect)
[2021-01-07] MEDS ORDERED: Vancomycin per Pharmacy 1 EA NOTE FOLLOW UP PRN (22:15)
[2021-01-07] MEDS ORDERED: Oxytocin in LR 20 UNITS/1,000 ML BAG IVPB SCH (23:00)
[2021-01-08] MEDS ORDERED: Oxytocin 10 UNITS/ML 1 ML VIAL IM ONE (00:32)
[2021-01-08] MEDS ORDERED: Witch Hazel PAD JAR TOPICAL PRN (00:32)
[2021-01-08] MEDS ORDERED: Glycerin ADULT 2.4 gm SUPP PR PRN (00:32)
[2021-01-08] MEDS ORDERED: Dibucaine 1% OINT 28.35 GM TUBE PR PRN (00:32)
[2021-01-08] MEDS ORDERED: Lactated Ringers 1000 ml BAG 1,000 ML IV SCH (01:00)
[2021-01-08] MEDS ORDERED: Vancomycin 1000 MG in NS 0.9% 250 ML IVPB SCH (06:00)
[2021-01-09] MEDS ORDERED: Vancomycin Trough Check NOTE FOLLOW UP ONE (05:30)
[2021-01-09 06:39] LABS: ABS Basophils 0.1 10^3/ul (0-0.2); ABS Eosinophils 0.2 10^3/ul (0-0.6); ABS Lymphocytes 3.3 10^3/ul (1.0-4.8); ABS Neutrophils 11.5 10^3/ul (1.5-7.7); Eosinophil % 1.4 %; Hematocrit 36 % (35-47); Hemoglobin 12.1 g/dL (12.0-16.0); Lymphocyte % 20.7 %; Mean Corpuscular HGB Conc 34 g/dL (31-36); Mean Corpuscular Hemoglobin 29 pg (27-31); Mean Corpuscular Volume 85 fL (80-97); Mean Platelet Volume 8.8 fL (7.4-10.4); Platelet Count 222 10^3/uL (150-450); Red Blood Count 4.22 10^6 /uL (3.70-4.87); Red Cell Distribution Width 16 % (10-15); White Blood Count 16.1 10^3/uL (3.5-10.8)
[2021-01-10 08:17] VITALS: BP 143/77
[2021-01-10] MEDS ORDERED: Measles, Mumps,Rubella VACC 0.5 ML/VIAL SUBCUT ONE (10:03)
== END 2021-01-10 11:24 | disposition home or self-care (01) | DRG 560 ==
LOC: MCHOBOUT 19:41 → MCHOB 19:49
PROVIDERS: ADMIT Obstetrics & Gynecology; ATTEND Obstetrics & Gynecology